=== PATIENT | male | born 1995 | race Caucasian/White ===

== ENCOUNTER 2017-03-14 17:52 | Emergency (ER) | payer BC, OTHER ==
[~2017-03-14] VITALS: Ht 175.3 cm; Wt 95.3 kg
[~2017-03-14 17:52] MED LIST: NAPR-243 PO
[2017-03-14] MEDS ORDERED: NS IV 1000 ML 1,000 ML ONE (18:12)
[2017-03-14] MEDS ORDERED: ONDANSETRON 4 MG/2 ML (SDV) Z0FRAN ONE (18:12)
[2017-03-14] MEDS ORDERED: NS IV 1000 ML 1,000 ML IV ONE ×2 (18:15→19:51)
[2017-03-14] MEDS ORDERED: ONDANSETRON 4 MG/2 ML (SDV) Z0FRAN IVP ONE (18:15)
[2017-03-14 18:24] LABS: BASOPHILS # (AUTO) 0.1 10^3/uL (0.0-0.1); BASOPHILS % (AUTO) 0 % (0-10); EOSINOPHILS # (AUTO) 0.3 10^3/uL (0.0-0.3); EOSINOPHILS % (AUTO) 2 % (0-10); LYMPHOCYTES # (AUTO) 0.7 X 10^3 (1.0-4.0); LYMPHOCYTES % (AUTO) 3 % (12-44); MEAN CORPUSCULAR HEMOGLOBIN 29 PG (25-34); MEAN CORPUSCULAR HGB CONC 35 G/DL (32-36); MEAN CORPUSCULAR VOLUME 83 FL (80-99); MEAN PLATELET VOLUME 11.4 FL (7.4-10.4); MONOCYTES % (AUTO) 9 % (0-12); NEUTROPHILS # (AUTO) 20.1 X 10^3 (1.8-7.8); NEUTROPHILS % (AUTO) 87 % (42-75); PLATELET COUNT 226 10^3/uL (130-400); RED BLOOD COUNT 5.89 10^6/uL (4.35-5.85); RED CELL DISTRIBUTION WIDTH 13.9 % (10.0-14.5); WHITE BLOOD COUNT 23.2 10^3/uL (4.3-11.0)
[2017-03-14] MEDS ORDERED: IOHEXOL 350 MG/ML 100 ML (OMNIPAQUE 350) VIAL IV ONE (18:30)
[2017-03-14] MEDS ORDERED: NS 100 ML (IVPB) BAG IV ONE (18:30)
[2017-03-14 18:44] LABS: ALANINE AMINOTRANSFERASE 36 U/L (0-55); ALBUMIN 4.7 GM/DL (3.2-4.5); ANION GAP 16 MMOL/L (5-14); ASPARTATE AMINO TRANSFERASE 22 U/L (5-34); BLOOD UREA NITROGEN 15 MG/DL (7-18); BUN/CREATININE RATIO 16; CALCIUM 9.1 MG/DL (8.5-10.1); CARBON DIOXIDE 19 MMOL/L (21-32); CHLORIDE 104 MMOL/L (98-107); CREATININE SERUM 0.95 MG/DL (0.60-1.30); GFR ESTIMATED > 60; GLUCOSE 98 MG/DL (70-105); LIPASE 19 U/L (8-78); POTASSIUM 4.1 MMOL/L (3.6-5.0); SODIUM 139 MMOL/L (135-145); TOTAL PROTEIN 8.4 GM/DL (6.4-8.2)
[2017-03-14 18:49] LABS: BAND NEUTROPHILS 8 %; BASOPHILS % (MANUAL) 0 %; EOSINOPHILS % (MANUAL) 3 %; LYMPHOCYTES % (MANUAL) 6 %; NEUTROPHILS % (MANUAL) 78 %
--- NOTE | 2017-03-14 19:21 | ED Abdominal Pain ---
General Chief Complaint: Abdominal/GI Problems Stated Complaint: THROWING UP/UPPER RIGHT STOMACHE SWELLING Source of Information: Patient, Other (significant other) Exam Limitations: No Limitations History of Present Illness Time Seen By Provider: 18:15 Allergies and Home Medications Allergies Coded Allergies: No Known Drug Allergies (Unverified , 02/09/10) Home Medications Escitalopram Oxalate 10 Mg Tablet, Unknown Dose PO, (Reported) Past Vdgysrk-Fwyrgo-Cnrkll Hx Patient Social History Recent Foreign Travel: No Contact w/Someone Who Travel: No Physical Exam Vital Signs VS - Last 72 Hours, by Label 03/14/17 18:10 Temp 97.0 Pulse 96 Resp 18 B/P (MAP) 127/94 Pulse Ox 96 Capillary Refill : Progress/Results/Core Measures Results/Orders Lab Results Laboratory Tests Test 03/14/17 18:15 03/14/17 19:40 Range/Units White Blood Count 23.2 H 4.3-11.0 10^3/uL Red Blood Count 5.89 H 4.35-5.85 10^6/uL Hemoglobin 16.8 13.3-17.7 G/DL Hematocrit 49 40-54 % Mean Corpuscular Volume 83 80-99 FL Mean Corpuscular Hemoglobin 29 25-34 PG Mean Corpuscular Hemoglobin Concent 35 32-36 G/DL Red Cell Distribution Width 13.9 10.0-14.5 % Platelet Count 226 130-400 10^3/uL Mean Platelet Volume 11.4 H 7.4-10.4 FL Neutrophils (%) (Auto) 87 H 42-75 % Lymphocytes (%) (Auto) 3 L 12-44 % Monocytes (%) (Auto) 9 0-12 % Eosinophils (%) (Auto) 2 0-10 % Basophils (%) (Auto) 0 0-10 % Neutrophils # (Auto) 20.1 H 1.8-7.8 X 10^3 Lymphocytes # (Auto) 0.7 L 1.0-4.0 X 10^3 Monocytes # (Auto) 2.0 H 0.0-1.0 X 10^3 Eosinophils # (Auto) 0.3 0.0-0.3 10^3/uL Basophils # (Auto) 0.1 0.0-0.1 10^3/uL Neutrophils % (Manual) 78 % Lymphocytes % (Manual) 6 % Monocytes % (Manual) 5 % Eosinophils % (Manual) 3 % Basophils % (Manual) 0 % Band Neutrophils 8 % Blood Morphology Comment NORMAL Sodium Level 139 135-145 MMOL/L Potassium Level 4.1 3.6-5.0 MMOL/L Chloride Level 104 98-107 MMOL/L Carbon Dioxide Level 19 L 21-32 MMOL/L Anion Gap 16 H 5-14 MMOL/L Blood Urea Nitrogen 15 7-18 MG/DL Creatinine 0.95 0.60-1.30 MG/DL Estimat Glomerular Filtration Rate > 60 BUN/Creatinine Ratio 16 Glucose Level 98 70-105 MG/DL Calcium Level 9.1 8.5-10.1 MG/DL Total Bilirubin 1.0 0.1-1.0 MG/DL Aspartate Amino Transf (AST/SGOT) 22 5-34 U/L Alanine Aminotransferase (ALT/SGPT) 36 0-55 U/L Alkaline Phosphatase 92 40-136 U/L Total Protein 8.4 H 6.4-8.2 GM/DL Albumin 4.7 H 3.2-4.5 GM/DL Lipase 19 8-78 U/L Urine Color YELLOW Urine Clarity CLEAR Urine pH 5 5-9 Urine Specific [place] 1.005 L 1.016-1.022 Urine Protein NEGATIVE NEGATIVE Urine Glucose (UA) NEGATIVE NEGATIVE Urine Ketones NEGATIVE NEGATIVE Urine Nitrite NEGATIVE NEGATIVE Urine Bilirubin NEGATIVE NEGATIVE Urine Urobilinogen NORMAL NORMAL MG/DL Urine Leukocyte Esterase NEGATIVE NEGATIVE Urine RBC (Auto) NEGATIVE NEGATIVE Urine RBC NONE /HPF Urine WBC NONE /HPF Urine Squamous Epithelial Cells RARE /HPF Urine Crystals NONE /LPF Urine Bacteria NONE /HPF Urine Casts NONE /LPF Urine Mucus NEGATIVE /LPF Urine Culture Indicated NO My Orders Orders - ANDREA GIRON Cbc With Automated Diff (03/14/17 18:15) Comprehensive Metabolic Panel (03/14/17 18:15) Lipase (03/14/17 18:15) Ua Culture If Indicated (03/14/17 18:15) Saline Lock/Iv-Start (03/14/17 18:15) Ondansetron Injection (Zofran Injectio (03/14/17 18:15) Ns Iv 1000 Ml (Sodium Chloride 0.9%) (03/14/17 18:15) Ondansetron Injection (Zofran Injectio (03/14/17 18:12) Ns Iv 1000 Ml (Sodium Chloride 0.9%) (03/14/17 18:12) Ct Abdomen/Pelvis W (03/14/17 18:23) Manual Differential (03/14/17 18:15) Iohexol Injection (Omnipaque 350 Mg/Ml 1 (03/14/17 18:30) Ns (Ivpb) (Sodium Chloride 0.9% Ivpb Bag (03/14/17 18:30) Ns Iv 1000 Ml (Sodium Chloride 0.9%) (03/14/17 19:51) Medications Given in ED Current Medications Medications Dose Ordered Sig/Christi Route Start Time Stop Time Status Last Admin Dose Admin Iohexol 100 ml ONCE ONCE IV 03/14/17 18:30 03/14/17 18:31 UNV 03/14/17 19:05 100 ML Ondansetron HCl 8 mg ONCE ONCE IVP 03/14/17 18:15 03/14/17 18:17 DC 03/14/17 18:20 8 MG Sodium Chloride 100 ml ONCE ONCE IV 03/14/17 18:30 03/14/17 18:31 UNV 03/14/17 19:05 80 ML Sodium Chloride 1,000 ml @ 0 mls/hr Q0M ONCE IV 03/14/17 18:15 03/14/17 18:17 DC 03/14/17 18:20 1,000 MLS/HR Sodium Chloride 1,000 ml @ 0 mls/hr Q0M ONCE IV 03/14/17 19:51 03/14/17 19:52 DC 03/14/17 20:01 0 MLS/HR Vital Signs/I&O Vital Sign - Last 12Hours 03/14/17 18:10 Temp 97.0 Pulse 96 Resp 18 B/P (MAP) 127/94 Pulse Ox 96 Departure Impression Impression: Primary Impression: Abdominal pain Qualified Codes: R10.11 - Right upper quadrant pain Additional Impression: Nausea and vomiting Qualified Codes: R11.2 - Nausea with vomiting, unspecified Disposition: HOME, SELF-CARE Condition: Improved Departure-Patient Inst. Decision time for Depature: 20:23 Referrals: REX JOHNSON MD (PCP/Family) Primary Care Physician Patient Instructions: Acute Abdomen (Belly Pain), Adult (DC), Nausea and Vomiting, Adult (DC) Add. Discharge Instructions: All discharge instructions reviewed with patient and/or family. Voiced understanding. Medications as instructed. Tylenol extra strength [id number] as directed for pain. Avoid spicy foods, fatty foods, carbonated beverages, caffeinated beverages, NSAIDs. Do not eat within 2 hours of lying down. Liquid diet until symptoms improve. Follow-up with Dr. Johnson this week for recheck and repeat labs. Return to the emergency department for worsened pain, fever, vomiting, vomiting blood, rectal bleeding, black stools, abdominal swelling, or any other concerns. Scripts Ondansetron (Ondansetron Odt) 8 Mg Tab.rapdis 8 MG PO Q6H Y for NAUSEA/VOMITING-1ST LINE, #10 TAB 0 Refills Prov: ANDREA GIRON 03/14/17 Work/School Note: Work Release Form Date Seen in the Emergency Department: Mar 14, 2017 Return to Work: Mar 16, 2017 Restrictions: Return-No Vomiting(24hrs) ANDREA GIRON Mar 14, 2017 19:21
--- NOTE | 2017-03-14 19:22 | Diagnostic Imaging Report ---
PROCEDURE: CT abdomen and pelvis with contrast. TECHNIQUE: Multiple contiguous axial images were obtained through the abdomen and pelvis after administration of intravenous contrast. INDICATION: Nausea, vomiting, constipation, right upper quadrant pain. Gallbladder appeared unremarkable. The liver parenchyma unremarkable. There is no bile duct dilatation. The pancreas and peripancreatic fat were unremarkable. There is no hydronephrosis. The kidneys appeared normal. There is no adrenal mass, the spleen negative. Prostate, seminal vesicles and urinary bladder unremarkable. There is no ascites, abscess, hematoma or other fluid collection. No pneumatosis or free air. There is fluid within the abdominal and pelvic small bowel minimally ectatic. Some areas of small bowel showed mild mucosal hyperemia and hyperenhancement. The pattern raises the question of mild enteritis. Correlate clinically. No resultant bowel obstruction. No perforation or abscess. There is no appendicitis or diverticulitis. IMPRESSION: Fluid containing small bowel shows mild mucosal hyperenhancement raising the question of mild enteritis. No resultant obstruction, however. No ascites, abscess or other fluid collection. No perforation. Unobstructed urinary tracts with no hepatobiliary abnormality. Study otherwise negative. Dictated by: Dictated on workstation # [id number]
[2017-03-14] MEDS ORDERED: ESCI10TA PO (19:29)
[2017-03-14 19:50] LABS: BILIRUBIN,URINE NEGATIVE (NEGATIVE); KETONES,URINE NEGATIVE (NEGATIVE); LEUKOCYTE ESTERASE ,URINE NEGATIVE (NEGATIVE); NITRITE,URINE NEGATIVE (NEGATIVE); PH,URINE 5 (5-9); PROTEIN,URINE NEGATIVE (NEGATIVE); UROBILINOGEN,URINE NORMAL (NORMAL)
[2017-03-14 20:00] LABS: SQUAMOUS EPITHELIAL CELL,UR RARE /HPF
[2017-03-14] MEDS ORDERED: ONDA8TAB13 PO (20:24)
[2017-03-14] MEDS ORDERED: RX-ONDANSETRON 4 MG ODT (ZOFRAN) PPK #4 PO STA (20:32)
[2017-03-14 20:39] VITALS: BP 115/75
== END 2017-03-14 20:39 | disposition home or self-care (01) ==
LOC: EDUNIT# 17:52 → ER 17:55
DX: R10.11 Right upper quadrant pain (principal); R11.2 Nausea with vomiting, unspecified
CPT/HCPCS: 36415; 74177; 80053; 81000; 83690; 85007; 85027; 96361; 96374

== ENCOUNTER → 2017-03-19 | Outpatient (CLI) | payer BC ==
[~2017-03-19] MED LIST changes: +ESCI10TA PO; +ONDA8TAB13 PO
[2017-03-19 14:16] LABS: BASOPHILS # (AUTO) 0.1 10^3/uL (0.0-0.1); BASOPHILS % (AUTO) 1 % (0-10); EOSINOPHILS # (AUTO) 0.5 10^3/uL (0.0-0.3); EOSINOPHILS % (AUTO) 5 % (0-10); LYMPHOCYTES # (AUTO) 2.1 X 10^3 (1.0-4.0); LYMPHOCYTES % (AUTO) 20 % (12-44); MEAN CORPUSCULAR HEMOGLOBIN 29 PG (25-34); MEAN CORPUSCULAR HGB CONC 35 G/DL (32-36); MEAN CORPUSCULAR VOLUME 83 FL (80-99); MEAN PLATELET VOLUME 10.8 FL (7.4-10.4); MONOCYTES # (AUTO) 1.6 X 10^3 (0.0-1.0); MONOCYTES % (AUTO) 15 % (0-12); NEUTROPHILS # (AUTO) 6.1 X 10^3 (1.8-7.8); NEUTROPHILS % (AUTO) 60 % (42-75); PLATELET COUNT 259 10^3/uL (130-400); RED BLOOD COUNT 5.53 10^6/uL (4.35-5.85); RED CELL DISTRIBUTION WIDTH 13.5 % (10.0-14.5); WHITE BLOOD COUNT 10.3 10^3/uL (4.3-11.0)
[2017-03-19 14:35] LABS: ALANINE AMINOTRANSFERASE 30 U/L (0-55); ALBUMIN 4.2 GM/DL (3.2-4.5); ANION GAP 8 MMOL/L (5-14); ASPARTATE AMINO TRANSFERASE 20 U/L (5-34); BILIRUBIN,TOTAL 0.9 MG/DL (0.1-1.0); BLOOD UREA NITROGEN 12 MG/DL (7-18); BUN/CREATININE RATIO 15; CARBON DIOXIDE 26 MMOL/L (21-32); CHLORIDE 107 MMOL/L (98-107); CREATININE SERUM 0.81 MG/DL (0.60-1.30); GFR ESTIMATED > 60; GLUCOSE 72 MG/DL (70-105); POTASSIUM 3.7 MMOL/L (3.6-5.0); SODIUM 141 MMOL/L (135-145); TOTAL PROTEIN 7.8 GM/DL (6.4-8.2)
== END ==
LOC: LAB 14:05
PROVIDERS: ATTEND Nurse Practitioner Family
DX: D72.829 Elevated white blood cell count, unspecified (principal)
CPT/HCPCS: 36415; 80053; 85025

== ENCOUNTER 2021-10-12 10:32 | Emergency (ER) | payer OTHER ==
[~2021-10-12] VITALS: Ht 175 cm; Wt 102.9 kg
--- NOTE | 2021-10-12 10:48 | ED GU-Male ---
General Chief Complaint: - Reproductive Stated Complaint: L TESTICLE PAIN/BRUSING/SWELLING Source: patient Exam Limitations: no limitations History of Present Illness Date Seen by Provider: Oct 12, 2021 Time Seen by Provider: 10:32 Initial Comments Patient to the ER by private conveyance with his significant other chief complaint that this morning shortly after he woke up he started having some progressively worsening to severe pain in his left testicle. Worse with movement. No discharge dysuria fevers chills nausea vomiting. No history of torsion or abdominal or pelvic surgeries. No trauma. Last oral intake was about 8:00 for breakfast. Allergies and Home Medications Allergies Coded Allergies: No Known Drug Allergies (Unverified , 02/09/10) Patient Home Medication List Home Medication List Reviewed: Yes Doxycycline Hyclate (Doxycycline Hyclate) 100 Mg Tablet, 100 MG PO BID Prescribed by: TREE SOUZA on 10/12/21 1233 Escitalopram Oxalate (Lexapro) 10 Mg Tablet, Unknown Dose PO, (Reported) Entered as Reported by: ERICK STEWART on 03/14/171928 Ketorolac Tromethamine (Ketorolac Tromethamine) 10 Mg Tablet, 10 MG PO Q6H PRN for PAIN-BREAKTHROUGH Prescribed by: TREE SOUZA on 10/12/21 1235 Ondansetron (Ondansetron Odt) 8 Mg Tab.rapdis, 8 MG PO Q6H PRN for NAUSEA/VOMITING-1ST LINE Prescribed by: ANDREA GIRON on 03/14/172023 Ondansetron (Ondansetron Odt) 4 Mg Tab.rapdis, 4 MG PO Q6H PRN for NAUSEA/VOMITING Prescribed by: TREE SOUZA on 10/12/21 1235 Review of Systems Review of Systems Constitutional: No chills, No fever EENTM: No ear discharge, No ear pain Respiratory: No cough, No short of breath Cardiovascular: No edema, No palpitations Gastrointestinal: No abdominal pain, No constipation, No diarrhea, No nausea, No vomiting Genitourinary: see HPI; denies burning, denies discharge, denies dysuria Musculoskeletal: No back pain, No joint pain All Other Systemes Reviewed Negative Unless Noted: Yes Past Zmkoxwm-Bgduks-Azlmqh Hx Patient Social History Tobacco Use?: No Substance use?: No Alcohol Use?: Yes Alcohol Frequency: Once in a while Pt feels they are or have been: No Immunizations Up To Date Tetanus Booster (TDap): Less than 5yrs First/Initial COVID19 Vaccinat: YES Second COVID19 Vaccination Oral: YES COVID19 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 oz. 95.342693ah; BMI Method:Stated General Appearance: WD/WN, mild distress Neck: full range of motion, normal inspection Cardiovascular: normal peripheral pulses, regular rate, rhythm Respiratory: no respiratory distress, no accessory muscle use Gastrointestinal: normal bowel sounds, non tender, soft Male: normal genitalia (Normal penis and glans no excess greeted discharge on palpation. No lesions. Testicles are retracted left worse than right. Difficult to ascertain a cremasteric reflex.) Extremities: normal range of motion, non-tender, normal capillary refill Neurologic/Psychiatric: alert, normal mood/affect, oriented x 3 Skin: normal color, warm/dry Progress/Results/Core Measures Suspected Sepsis SIRS Temperature: Pulse: Respiratory Rate: Blood Pressure / Mean: Results/Orders Lab Results Laboratory Tests Test 10/12/21 10:48 Range/Units Urine Color YELLOW Urine Clarity SL CLOUDY Urine pH 7.5 5-9 Urine Specific [place] 1.020 1.016-1.022 Urine Protein NEGATIVE NEGATIVE Urine Glucose (UA) NEGATIVE NEGATIVE Urine Ketones NEGATIVE NEGATIVE Urine Nitrite NEGATIVE NEGATIVE Urine Bilirubin NEGATIVE NEGATIVE Urine Urobilinogen 4.0 < = 1.0 MG/DL Urine Leukocyte Esterase NEGATIVE NEGATIVE Urine RBC (Auto) NEGATIVE NEGATIVE Urine RBC NONE /HPF Urine WBC NONE /HPF Urine Squamous Epithelial Cells RARE /HPF Urine Crystals NONE /LPF Urine Bacteria NEGATIVE /HPF Urine Casts NONE /LPF Urine Mucus NEGATIVE /LPF Urine Culture Indicated NO My Orders Orders - TREE SOUZA Scrotum (Testicle) [id number] (10/12/21 10:44) Ua Culture If Indicated (10/12/21 10:44) Chlamydia Trachomatis Urine (10/12/21 10:44) Neis Jonnie Dna Urine Test (10/12/21 10:44) Ketorolac Injection (Toradol Injection) (10/12/21 11:00) Azithromycin Tablet (Zithromax Tablet) (10/12/21 12:45) Medications Given in ED Current Medications Medications Dose Ordered Sig/Christi Route Start Time Stop Time Status Last Admin Dose Admin Ketorolac Tromethamine 30 mg ONCE ONCE IVP 10/12/21 11:00 10/12/21 11:01 DC 10/12/21 10:54 30 MG Vital Signs/I&O 10/12/21 10:40 Temp 35.6 Pulse 106 Resp 18 B/P (MAP) 149/107 (121) Pulse Ox 95 Capillary Refill : Progress Note : Time: 10:54 Progress Note Ultrasound to rule out torsion or look for epididymitis/orchitis. Urinalysis, GC and chlamydia. He is in a stable monogamous relationship with no history of STDs so more likely this will be a gram-negative, common, nonsexually transmitted pathogen if there is no evidence of torsion. Diagnostic Imaging Diagonstic Imaging: Ultrasound Plain Films/CT/US/NM/MRI: other (Scrotum) Comments No evidence of torsion. Hypervascular appearance of the left testicle and epididymis. NAME: TORI MONROY [facility] REC#: [id number] PT STATUS: REG ER : 1995 PHYSICIAN: TREE SOUZA MD ADMIT DATE: 10/12/21/ER Draft Date of Exam:10/12/21 US SCROTUM (Testicle) [id number] EXAMINATION: US Scrotum w/ Duplex TECHNIQUE: Multiple realtime patel images were obtained of the scrotum in various projections bilaterally. Color Doppler images were also obtained. HISTORY: Testicular pain COMPARISON: 01/09/2016 FINDINGS: The right testicle measures 4.1 x 2.1 x 2.9 cm. The left testicle measures 4.1 x 1.9 x 2.8 cm. Both testis are normal in echogenicity. No mass is seen. There is no hydrocele. There is no varicocele. Both epididymides have normal color flow without suspicious mass. Duplex images reveal normal arterial inflow to both testis. IMPRESSION: 1. Normal testicular ultrasound. Dictated on workstation # [id number] Dict: 10/12/21 1222 Trans: 10/12/21 1227 [facility] [id number] Interpreted by: MELISA NEWSOME MD Electronically signed by: Reviewed: Reviewed by Me Departure Impression Primary Impression: Epididymitis with no abscess Disposition: 01 HOME, SELF-CARE Condition: Stable Departure-Patient Inst. Decision time for Depature: 12:26 Referrals: NO,LOCAL PHYSICIAN (PCP) Primary Care Physician VINEET COE MD Patient Instructions: Epididymitis (DC) Add. Discharge Instructions: Drink plenty of fluids. Doxycycline 1 capsule twice a day for the next week to treat infection of the epididymis. Follow-up with Dr. Coe, urology if you're having persistent symptoms despite 2 to 3 days of antibiotic treatment. Tylenol 1000 mg every 8 hours as necessary for pain. Ketorolac 1 tablet every 6 hours as necessary for breakthrough pain. Do not mix with ibuprofen, Aleve, naproxen or aspirin as these are similar family of drug and you will not derive additional benefit. Ondansetron 1 tablet every 6 hours under the tongue as necessary for nausea and/or vomiting. All discharge instructions reviewed with patient and/or family. Voiced understanding. Scripts Ondansetron (Ondansetron Odt) 4 Mg Tab.rapdis 4 MG PO Q6H PRN for NAUSEA/VOMITING, #8 TAB 0 Refills Prov: TREE SOUZA 10/12/21 Ketorolac Tromethamine (Ketorolac Tromethamine) 10 Mg Tablet 10 MG PO Q6H PRN for PAIN-BREAKTHROUGH, #15 TAB 0 Refills Prov: TREE SOUZA 10/12/21 Doxycycline Hyclate (Doxycycline Hyclate) 100 Mg Tablet 100 MG PO BID for 10 Days, #20 TAB 0 Refills Prov: TREE SOUZA 10/12/21 Work/School Note: Work Release Form Date Seen in the Emergency Department: Oct 12, 2021 Return to Work: Oct 15, 2021 Restrictions: No Restrictions Copy Copies To 1: VINEET COE MD, TITUS J Oct 12, 2021 10:48
[2021-10-12 10:53] LABS: BILIRUBIN,URINE NEGATIVE (NEGATIVE); CLARITY,URINE SL CLOUDY; COLOR,URINE YELLOW; GLUCOSE, URINE (UA) NEGATIVE (NEGATIVE); KETONES,URINE NEGATIVE (NEGATIVE); LEUKOCYTE ESTERASE ,URINE NEGATIVE (NEGATIVE); NITRITE,URINE NEGATIVE (NEGATIVE); PH,URINE 7.5 (5-9); PROTEIN,URINE NEGATIVE (NEGATIVE)
[2021-10-12 11:00] LABS: BACTERIA,URINE NEGATIVE /HPF; SQUAMOUS EPITHELIAL CELL,UR RARE /HPF
[2021-10-12] MEDS ORDERED: KETOROLAC 30 MG/ML VIAL IVP ONE (11:00)
--- NOTE | 2021-10-12 12:28 | Diagnostic Imaging Report ---
EXAMINATION: US Scrotum w/ Duplex TECHNIQUE: Multiple realtime patel images were obtained of the scrotum in various projections bilaterally. Color Doppler images were also obtained. HISTORY: Testicular pain COMPARISON: 01/09/2016 FINDINGS: The right testicle measures 4.1 x 2.1 x 2.9 cm. The left testicle measures 4.1 x 1.9 x 2.8 cm. Both testis are normal in echogenicity. No mass is seen. There is no hydrocele. There is no varicocele. Both epididymides have normal color flow without suspicious mass. Duplex images reveal normal arterial inflow to both testis. IMPRESSION: 1. Normal testicular ultrasound. Dictated by: Dictated on workstation # [id number]
[2021-10-12] MEDS ORDERED: DOXY100T2 PO (12:33)
[2021-10-12] MEDS ORDERED: ONDA4TAB11 PO (12:35)
[2021-10-12] MEDS ORDERED: KETO10TA PO (12:35)
[2021-10-12] MEDS ORDERED: cefTRIAXone 1 GM PRE-MIX 50 ML IV ONE (12:45)
[2021-10-12] MEDS ORDERED: AZITHROMYCIN 250 MG TAB (ZITHROMAX) PO ONE (12:45)
[2021-10-12 13:20] VITALS: BP 133/74
== END 2021-10-12 13:20 | disposition home or self-care (01) ==
LOC: EDUNIT# 10:32 → ER 10:35
DX: N45.1 Epididymitis (principal); F32.9 Major depressive disorder, single episode, unspecified; Z79.899 Other long term (current) drug therapy
CPT/HCPCS: 76870; 81000; 87491; 87591